=== PATIENT | male | born 1965 | race Hispanic/Latino ===

== ENCOUNTER 2017-01-17 11:38 | Emergency (ER) | payer SELFPAY ==
[~2017-01-17] VITALS: Ht 167.6 cm; Wt 61.4 kg
[~2017-01-17 11:38] MED LIST: DIABETA5 MG OR; LISINOPRIL10 MG PO; METFORMIN850 MG OR; PRAVASTATIN20 MG OR; PREVACID30 M2 OR
[2017-01-17 12:25] LABS: HEMATOCRIT 44.6 % (39.0-50.0); HEMOGLOBIN 15.7 g/dl (14.0-18.0); IMMATURE GRANULOCYTES 0.2 % (0.0-1.0); MEAN CELL VOLUME 93.9 fL CALC (80.0-100.0); MEAN CORPUSCULAR HGB 33.1 pG CALC (26.0-32.0); MEAN CORPUSCULAR HGB CONC 35.2 g/L CALC (32.0-36.0); NEUT# 3.08 thou/uL (1.82-7.42); RED BLOOD COUNT 4.75 mill/uL (4.70-6.10); RED CELL DISTRI WIDTH 11.7 % (11.5-15.5)
[2017-01-17 12:27] LABS: URINE CLARITY CLEAR; URINE COLOR YELLOW; URINE GLUCOSE - DIPSTICK >=1000 mg/dL (NEGATIVE); URINE KETONE TRACE mg/dL (NEGATIVE); URINE LEUK ESTERASE NEGATIVE (NEGATIVE); URINE NITRITE - DIPSTICK NEGATIVE (Negative); URINE PROTEIN - DIPSTICK 30 mg/dL (NEG-TRACE)
[2017-01-17 12:32] LABS: URINE BILIRUBIN - DIPSTICK NEGATIVE (NEGATIVE)
[2017-01-17] MEDS ORDERED: OMEPRAZOLE10 MG PO (12:32)
[2017-01-17] MEDS ORDERED: NOVOLIN N100 UNIT/1 SC (12:32)
[2017-01-17 12:37] LABS: URINE BACTERIA RARE hpf; URINE BLOOD DIPSTICK NEGATIVE (NEGATIVE); URINE EPITHELIAL CELLS RARE EPI/hpf (0-FEW); URINE RBC 0-2 RBC/hpf (0-5); URINE WBC 0-2 WBC/hpf (0-5)
[2017-01-17 12:56] LABS: ALBUMIN 4.8 g/dL (3.2-5.0); ALKALINE PHOSPHATASE 96 u/l (38-126); AMYLASE 36 u/l (30-110); ANION GAP 17 (6-22 (CALC)); BILIRUBIN, TOTAL 1.5 mg/dL (0.0-1.4); BUN 15 mg/dL (9-20); BUN/CREATININE RATIO 22 (12-20 (CALC)); CALCIUM 9.7 mg/dL (8.4-10.2); CARBON DIOXIDE 26 mmol/l (22-30); CHLORIDE 100 mmol/l (95-108); CREATININE 0.7 mg/dL (0.7-1.3); GFR > 60 ML/MIN (>=60 (CALC)); GFR FOR AFR.AMER. > 60 ML/MIN (>=60 (CALC)); GLUCOSE 214 mg/dL (75-110); LIPASE 71 u/l (23-300); POTASSIUM 4.5 mmol/l (3.5-5.1); SGOT/AST 25 u/l (17-59); SGPT/ALT 37 u/l (21-72); SODIUM 138 mmol/l (137-146); TOTAL PROTEIN 8.2 g/dL (6.3-8.2)
[2017-01-17] MEDS ORDERED: NEXIUM40 M1 PO (14:40)
[2017-01-17] MEDS ORDERED: ZOFRAN ODT4 MG PO (14:40)
[2017-01-17 14:56] VITALS: BP 162/87
== END 2017-01-17 15:16 | disposition home or self-care (01) | DRG 392 ==
LOC: ED 11:38
PROVIDERS: Emergency Medicine
DX: R11.10 Vomiting, unspecified (principal); R17 Unspecified jaundice; E11.9 Type 2 diabetes mellitus without complications

== ENCOUNTER 2017-02-19 15:52 | Emergency (ER) | payer SELFPAY ==
[~2017-02-19] VITALS: Ht 167.6 cm; Wt 65.8 kg
[~2017-02-19 15:52] MED LIST changes: +NEXIUM40 M1 PO; +NOVOLIN N100 UNIT/1 SC; +OMEPRAZOLE10 MG PO; +ZOFRAN ODT4 MG PO
[2017-02-19 17:56] LABS: HEMOGLOBIN 15.2 g/dl (14.0-18.0); IMMATURE GRANULOCYTES 0.4 % (0.0-1.0); MEAN CELL VOLUME 93.5 fL CALC (80.0-100.0); MEAN CORPUSCULAR HGB 33.9 pG CALC (26.0-32.0); MEAN CORPUSCULAR HGB CONC 36.2 g/L CALC (32.0-36.0); NEUT# 2.66 thou/uL (1.82-7.42); RED BLOOD COUNT 4.49 mill/uL (4.70-6.10); RED CELL DISTRI WIDTH 11.8 % (11.5-15.5)
[2017-02-19 18:08] LABS: ALBUMIN 4.2 g/dL (3.2-5.0); ALKALINE PHOSPHATASE 199 u/l (38-126); AMYLASE 54 u/l (30-110); ANION GAP 16 (6-22 (CALC)); BILIRUBIN, TOTAL 0.5 mg/dL (0.0-1.4); BUN 15 mg/dL (9-20); BUN/CREATININE RATIO 21 (12-20 (CALC)); CALCIUM 9.2 mg/dL (8.4-10.2); CARBON DIOXIDE 24 mmol/l (22-30); CHLORIDE 102 mmol/l (95-108); CREATININE 0.7 mg/dL (0.7-1.3); GFR > 60 ML/MIN (>=60 (CALC)); GFR FOR AFR.AMER. > 60 ML/MIN (>=60 (CALC)); GLUCOSE 292 mg/dL (75-110); LIPASE 181 u/l (23-300); POTASSIUM 3.5 mmol/l (3.5-5.1); SGOT/AST 21 u/l (17-59); SGPT/ALT 34 u/l (21-72); SODIUM 139 mmol/l (137-146); TOTAL PROTEIN 7.1 g/dL (6.3-8.2)
[2017-02-19 18:22] LABS: MYOGLOBIN 19 ng/mL (0 - 121)
[2017-02-19] MEDS ORDERED: NEXIUM40 M1 PO (18:22)
[2017-02-19 18:42] VITALS: BP 117/77
== END 2017-02-19 19:10 | disposition home or self-care (01) | DRG 392 ==
LOC: ED 15:52
PROVIDERS: Emergency Medicine
DX: R10.13 Epigastric pain (principal)

== ENCOUNTER 2020-05-20 12:20 | Emergency (ER) | payer SELFPAY ==
[~2020-05-20] VITALS: Ht 165.1 cm; Wt 56.8 kg
[2020-05-20 14:52] LABS: HEMATOCRIT 41.1 % (39.0-50.0); HEMOGLOBIN 13.8 g/dl (14.0-18.0); IMMATURE GRANULOCYTES 0.7 % (0.0-5.0); MEAN CELL VOLUME 97.9 fL CALC (80.0-100.0); MEAN CORPUSCULAR HGB 32.9 pG CALC (26.0-32.0); MEAN CORPUSCULAR HGB CONC 33.6 g/dL CAL (32.0-36.0); NEUT# 3.74 thou/uL (1.82-7.42); RED BLOOD COUNT 4.2 mill/uL (4.70-6.10); RED CELL DISTRI WIDTH 11.9 % (11.5-15.5)
[2020-05-20 15:07] LABS: ALBUMIN 4.4 g/dL (3.2-5.0); ALKALINE PHOSPHATASE 216 u/l (38-126); BUN 16 mg/dL (9-20); BUN/CREATININE RATIO 25 (12-20 (CALC)); CARBON DIOXIDE 21 mmol/l (22-30); CHLORIDE 95 mmol/l (95-108); CREATININE 0.6 mg/dL (0.7-1.3); GFR > 60 ML/MIN (>=60 (CALC)); GFR FOR AFR.AMER. > 60 ML/MIN (>=60 (CALC)); SODIUM 133 mmol/l (137-146); TOTAL PROTEIN 7.4 g/dL (6.3-8.2)
[2020-05-20 15:11] LABS: ANION GAP 21 (6-22 (CALC)); BILIRUBIN, TOTAL 0.8 mg/dL (0.0-1.4); POTASSIUM 4.3 mmol/l (3.5-5.1); SGOT/AST 41 u/l (17-59)
[2020-05-20] MEDS ORDERED: AMOXICILLIN500 MG PO (16:39)
[2020-05-20] MEDS ORDERED: ULTRAM50 M1 PO (16:39)
[2020-05-20 16:54] VITALS: BP 102/73
== END 2020-05-20 16:55 | disposition home or self-care (01) | DRG 563 ==
LOC: ED 12:20
PROVIDERS: Emergency Medicine
PROC: 0HQGXZZ Repair Left Hand Skin, External Approach (ICD-10-PCS; principal; 2020-05-20)
DX: S62.617A Displaced fracture of proximal phalanx of left little finger, initial encounter for closed fracture (principal); S61.217A Laceration without foreign body of left little finger without damage to nail, initial encounter; S61.214A Laceration without foreign body of right ring finger without damage to nail, initial encounter; M54.2 Cervicalgia; E11.9 Type 2 diabetes mellitus without complications; V13.4XXA Pedal cycle driver injured in collision with car, pick-up truck or van in traffic accident, initial encounter; Y93.55 Activity, bike riding; Y92.410 Unspecified street and highway as the place of occurrence of the external cause; Z79.4 Long term (current) use of insulin
CPT/HCPCS: Q9967

== ENCOUNTER 2021-03-17 09:54 | Emergency (ER) | payer SELFPAY ==
[~2021-03-17 09:54] MED LIST changes: +AMOXICILLIN500 MG PO; +ULTRAM50 M1 PO
[2021-03-17] MEDS ORDERED: TORADOL PO (12:18)
[2021-03-17] MEDS ORDERED: OMEPRAZOLE DR20 MG PO (12:20)
[2021-03-17] MEDS ORDERED: LANTUS SOL100 UNIT/M SC (12:20)
== END 2021-03-17 10:01 | disposition left against medical advice (07) | DRG 951 ==
LOC: ED 09:54 → LWOBS 10:01 → ED 10:01
DX: Z91.19 Patient's noncompliance with other medical treatment and regimen (principal)

== ENCOUNTER 2021-03-17 10:11 | Emergency (ER) | payer OTHER ==
[~2021-03-17] VITALS: Ht 165.1 cm; Wt 70.0 kg
[2021-03-17] MEDS ORDERED: TORADOL PO (12:18)
[2021-03-17] MEDS ORDERED: LANTUS SOL100 UNIT/M SC (12:20)
[2021-03-17] MEDS ORDERED: OMEPRAZOLE DR20 MG PO (12:20)
[2021-03-17 12:30] VITALS: BP 120/65
== END 2021-03-17 12:30 | disposition home or self-care (01) | DRG 605 ==
LOC: ED 10:11
DX: S80.01XA Contusion of right knee, initial encounter (principal); S90.01XA Contusion of right ankle, initial encounter; E11.9 Type 2 diabetes mellitus without complications; V09.1XXA Pedestrian injured in unspecified nontraffic accident, initial encounter; Y93.89 Activity, other specified; Y92.89 Other specified places as the place of occurrence of the external cause; Y99.0 Civilian activity done for income or pay; Z79.84 Long term (current) use of oral hypoglycemic drugs

== ENCOUNTER 2021-10-05 08:02 | Day surgery (SDC) | payer SELFPAY ==
[~2021-10-05] VITALS: Ht 154.9 cm; Wt 63.5 kg
[~2021-10-05 08:02] MED LIST changes: +AMOXICILLIN500 M2; +CYCLOBENZAPRINE10 MG PO; +DICLOFENAC75 MG PO; +GABAPENTIN300 M2; +LANTUS SOL100 UNIT/M SC; +OMEPRAZOLE DR20 MG PO; +TORADOL PO
[2021-10-05 11:45] VITALS: BP 116/83
== END 2021-10-05 11:24 | disposition home or self-care (01) | DRG 392 ==
LOC: ENDO 08:02 → ORM 10:00 → ENDO 11:24
PROVIDERS: ATTEND Surgery
PROC: 0DJD8ZZ Inspection of Lower Intestinal Tract, Via Natural or Artificial Opening Endoscopic (ICD-10-PCS; principal; 2021-10-05)
DX: R10.32 Left lower quadrant pain (principal); R19.4 Change in bowel habit; E11.40 Type 2 diabetes mellitus with diabetic neuropathy, unspecified; K21.9 Gastro-esophageal reflux disease without esophagitis; Z79.4 Long term (current) use of insulin

== ENCOUNTER 2021-10-06 06:53 | Day surgery (SDC) | payer SELFPAY ==
[~2021-10-06] VITALS: Ht 154.9 cm; Wt 63.5 kg
[2021-10-06 10:08] VITALS: BP 96/68
== END 2021-10-06 11:24 | disposition home or self-care (01) | DRG 392 ==
LOC: ORM 06:53
PROVIDERS: ATTEND Surgery
PROC: 0DJD8ZZ Inspection of Lower Intestinal Tract, Via Natural or Artificial Opening Endoscopic (ICD-10-PCS; principal; 2021-10-06)
DX: R10.32 Left lower quadrant pain (principal); R19.4 Change in bowel habit; K64.8 Other hemorrhoids; E11.40 Type 2 diabetes mellitus with diabetic neuropathy, unspecified; K21.9 Gastro-esophageal reflux disease without esophagitis; Z79.4 Long term (current) use of insulin

== ENCOUNTER 2024-07-03 11:31 | Inpatient (IN) | payer SELFPAY ==
[~2024-07-03] VITALS: Ht 154.9 cm; Wt 61.0 kg
--- NOTE | 2024-07-03 12:15 | NUR ---
PT TO ER TRIAGE ROOM VIA WHEELCHAIR. PT PLACED BACK INTO ER LOBBY
[2024-07-03 13:30] LABS: BASO% 0.3 % (0-3); EOS% 0.3 % (0-8); IMMATURE GRANULOCYTES 0.3 % (0.0-5.0); LYMPH% 15.2 % (15-41); MEAN CORPUSCULAR HGB 33.3 pG CALC (26.0-32.0); MEAN CORPUSCULAR HGB CONC 33.3 g/dL CAL (32.0-36.0); MONO% 11.4 % (2-13); NEUT# 9.31 thou/uL (1.82-7.42); NEUT% 72.5 % (42-76); RED BLOOD COUNT 3.9 mill/uL (4.70-6.10); RED CELL DISTRI WIDTH 11.8 % (11.5-15.5)
[2024-07-03] MEDS ORDERED: CEFEPIME HYDROCHLORIDE 1 GM in SODIUM CHLORIDE 0.9% 50 ML IV ONE (13:40)
[2024-07-03] MEDS ORDERED: SODIUM CHLORIDE 0.9% 1,000 ML IV ONE (13:40)
[2024-07-03] MEDS ORDERED: VANCOMYCIN HCL 1 GM in SODIUM CHLORIDE 0.9% 500 ML IV ONE (13:40)
[2024-07-03 13:49] LABS: ALBUMIN 3.2 g/dL (3.2-5.0); CREATININE 0.6 mg/dL (0.7-1.3); POTASSIUM 4.5 mmol/l (3.5-5.1); TOTAL PROTEIN 6.3 g/dL (6.3-8.2)
--- NOTE | 2024-07-03 14:39 | NUR ---
PT RESTING COMFORTABLY IN BED
--- NOTE | 2024-07-03 15:24 | NUR ---
PT RESTING, NO NEEDS AT THIS TIME.
--- NOTE | 2024-07-03 16:00 | NUR ---
PT TRANSPORTED VIA WC TO ROOM 264.
[2024-07-03] MEDS ORDERED: MAGNESIUM HYDROXIDE 30 ML UDC PO PRN (16:40)
[2024-07-03] MEDS ORDERED: SODIUM CHLORIDE 0.9% 1,000 ML IV PRN (16:40)
[2024-07-03] MEDS ORDERED: ACETAMINOPHEN 325 MG/TAB PO PRN (16:40)
[2024-07-03] MEDS ORDERED: INSULIN LISPRO 100 UNITS/ML ML SC SCH (17:00)
--- NOTE | 2024-07-03 17:17 | NUR ---
S: HOLLIS WHITEHEAD is a 59 M who presents with CELLULITIS OF RIGHT FOOT. All medications in patient's chart were reviewed. O: VS: BP 104/50, P 92 ,T 98.2 W 60kg, HT 61 in, Scr= 0.6,CrCl= 107ml/min A: Blood culture is pending P: Patient is on CEFEPIME 2GM IV Q12H AND RECEIVED VANCOMYCIN 1GM IV IN THE ED ON 07/03/24 @1400 Vancomycin ordered for pharmacy to dose. Start Vancomycin 1GM IV Q12H. Vancomycin trough is drawn before the 4th dose on 07/05/24 @0130. Vancomycin goal trough is between 10-15 mcg/ml. Pharmacy will follow and or advise on antibiotics use as needed.
[2024-07-03 19:27] VITALS: BP 114/66
--- NOTE | 2024-07-03 19:48 | NUR ---
PATIENT SITTING UP IN BED. FAMILY MEMBERS AT BEDSIDE. ASSESSMENT COMPLETED. PATIENT ALERT AND ORIENTED X 4. DENIES PAIN AT THIS TIME. BREATHING EVEN AND UNLABORED ON ROOM AIR. PATIENT EDUCATED ON NURSING PLAN OF CARE WITH FAMILY MEMBER AT BEDSIDE TO TRANSLATE, VERBALIZED UNDERSTANDING. R FOOT DRESSING CLEAN, DRY AND INTACT. SAFETY MEASURES IN PLACE INCLUDING BED LOCKED AND IN LOW POSITION. CALL LIGHT RESTING NEXT TO R HAND. NO APPARENT DISTRESS NOTED. WILL CONTINUE WITH PLAN OF CARE.
[2024-07-03] MEDS ORDERED: CEFEPIME HYDROCHLORIDE 2 GM in SODIUM CHLORIDE 0.9% 100 ML IV SCH (20:00)
[2024-07-03] MEDS ORDERED: Zaleplon 5 MG/CAP PO PRN (21:00)
[2024-07-04] VITALS (7 sets, daily range): BP systolic 100–139; BP diastolic 56–83
--- NOTE | 2024-07-04 | NUR ---
PATIENT APPEARS TO BE RESTING WITH EYES CLOSED. RISE AND FALL OF CHEST NOTED. NO APPARENT DISTRESS NOTED. WILL CONTINUE WITH PLAN OF CARE.
[2024-07-04] MEDS ORDERED: VANCOMYCIN HCL 1 GM in SODIUM CHLORIDE 0.9% 250 ML IV SCH (02:00)
--- NOTE | 2024-07-04 04:00 | NUR ---
PATIENT APPEARS TO BE RESTING WITH EYES CLOSED. RISE AND FALL OF CHEST NOTED. NO APPARENT DISTRESS. WILL CONTINUE WITH PLAN OF CARE.
[2024-07-04 04:51] LABS: HEMATOCRIT 34.3 % (39.0-50.0); HEMOGLOBIN 11.4 g/dl (14.0-18.0); MEAN CELL VOLUME 102.7 fL CALC (80.0-100.0); MEAN CORPUSCULAR HGB 34.1 pG CALC (26.0-32.0); MEAN CORPUSCULAR HGB CONC 33.2 g/dL CAL (32.0-36.0); RED BLOOD COUNT 3.34 mill/uL (4.70-6.10); RED CELL DISTRI WIDTH 11.9 % (11.5-15.5)
[2024-07-04 05:02] LABS: ALBUMIN 2.6 g/dL (3.2-5.0); BILIRUBIN, TOTAL 0.8 mg/dL (0.2-1.3); CHOLESTEROL HDL RATIO 3.2 (<4.4 (CALC)); CREATININE 0.6 mg/dL (0.7-1.3); MAGNESIUM 1.8 mg/dL (1.6-2.3); TOTAL PROTEIN 5.6 g/dL (6.3-8.2)
--- NOTE | 2024-07-04 08:15 | NUR ---
PT IS FOUND TO BE RESTING COMFORTABLY IN BED. NO ACUTE EVENTS OVER NIGHT. PT IS A&O X4; STABLE. PT IS INDEPENDANT IN THE ROOM. PLAN OF CARE WAS REVIEWED; NO FURTHER QUESTIONS AT THIS TIME. CALL LIGHT IS WITHIN REACH.
[2024-07-04] MEDS ORDERED: INSULIN GLARGINE 100 UNITS/ML SC SCH (09:00)
--- NOTE | 2024-07-04 12:30 | NUR ---
PT'S CONDITION HAS REMAINED THE SAME. CALL LIGHT IS WITHIN REACH.
--- NOTE | 2024-07-04 16:30 | NUR ---
PLAN OF CARE WAS REVIEWED WITH THE SON; MARTHA. PT'S CONDITION REMIANS THE SAME. THIS RN DID WOUND CARE; CLEAN WITH BETADINE, NON ADHERANT, KERLEX, AND SIRI WRAP. NO FURTHER QUESTIONS AT THIS TIME. CALL LIGHT IS WITHIN REACH.
[2024-07-05] VITALS: BP 110/50; BP 123/73
[2024-07-05 04:00] VITALS: BP 110/50
[2024-07-05 04:38] VITALS: BP 110/50
[2024-07-05 05:34] LABS: HEMATOCRIT 35.6 % (39.0-50.0); HEMOGLOBIN 11.7 g/dl (14.0-18.0); MEAN CELL VOLUME 102.9 fL CALC (80.0-100.0); MEAN CORPUSCULAR HGB 33.8 pG CALC (26.0-32.0); MEAN CORPUSCULAR HGB CONC 32.9 g/dL CAL (32.0-36.0); RED BLOOD COUNT 3.46 mill/uL (4.70-6.10)
[2024-07-05 05:59] LABS: ALBUMIN 2.6 g/dL (3.2-5.0); BILIRUBIN, TOTAL 0.8 mg/dL (0.2-1.3); CREATININE 0.6 mg/dL (0.7-1.3); POTASSIUM 4.3 mmol/l (3.5-5.1); TOTAL PROTEIN 5.6 g/dL (6.3-8.2)
[2024-07-05 07:03] VITALS: BP 113/70
--- NOTE | 2024-07-05 07:15 | NUR ---
BEDSIDE SHIFT REPORT RECEIVED FROM [facility]. PT RESTING IN BED WITHOUT COMPLAINTS. PT SPEAKS MAINLY VIET[place]ESE AND UNDERSTANDS SOME THAI. DENIES PAIN. WILL MONITOR.
[2024-07-05] MEDS ORDERED: HYDROcodone 5 MG/Acetaminophen 325 MG/COMBO PO PRN (08:15)
[2024-07-05] MEDS ORDERED: VANCOMYCIN HCL 1,250 MG in SODIUM CHLORIDE 0.9% 225 ML IV SCH (14:00)
--- NOTE | 2024-07-05 14:41 | NUR ---
S: HOLLIS WHITEHEAD is a 59 M who presents with cellulitis. O: VS: BP 113/70, P 84, RR 20,T 97.6 W 61 kg, HT 61 in, Scr= 0.6,CrCl= 107 l/min A: Wound culture is pending. P: Patient is on Cefepime 2gm IV q12h. Vancomycin ordered for pharmacy to dose. Vancomycin trough on 07/05/24 0150 resulted at 7 mcg/ml. Increase Vancomycin to 1250 mg IV q12h. Vancomycin trough is drawn before the 4th dose on 07/07/24 0130. Vancomycin goal trough is between <10-15 mcg/ml>. Pharmacy will follow and or advise on antibiotics use as needed.
[2024-07-05 15:35] VITALS: BP 103/65
--- NOTE | 2024-07-05 18:42 | NUR ---
PT RESTED IN BED MOST OF SHIFT WITH MINIMAL ASSIST TO BR TO SHOWER WITH HIS SON HELPING HIM. RIGHT FOOT DRESSING CHANGED AND PT DELON WELL. BLACK ESCHAR TO TOP OF FOOT NEAR TOES TO 3RD TARSAL WELL. PAIN MANAGED WITH ORDERED LORTAB. NO CHANGES TO REPORT.
--- NOTE | 2024-07-05 19:44 | NUR ---
PATIENT SITTING UP IN BED WATCHING TV. PATIENT ALERT AND ORIENTED X 4. STATES HE HAS PAIN OF A 2 AT THIS TIME AND IS MANAGEABLE. LUNGS CLEAR TO ASCULTATION. BREATHING EVEN AND UNLABORED ON ROOM AIR. STRONG PULSES. SAFETY MEASURES IN PLACE INCLUDING BED LOCKED AND IN LOW POSITION WITH CALL LIGHT RESTING NEXT TO R HAND. NO APPARENT DISTRESS. WILL CONTINUE WITH PLAN OF CARE.
[2024-07-05 19:48] VITALS: BP 91/52
[2024-07-05] MEDS ORDERED: DiphenhydrAMINE HCL 25 MG CPLT PO SCH (21:15)
--- NOTE | 2024-07-05 21:29 | NUR ---
WOUND CX OBTAINED. R FOOT REWRAPPED WITH NONADHERENT DRSG, KERLIX AND 1 SIRI BANDAGE
[2024-07-06] VITALS (9 sets, daily range): BP systolic 74–117; BP diastolic 42–73
--- NOTE | 2024-07-06 | NUR ---
PATIENT LYING IN BED WATCHING TV. PATIENT STATES THAT HE HAS BEEN UNABLE TO SLEEP. WILL MEDICATE ACCORDING TO EMAR. DENIES ADDITIONAL CONCERNS AT THIS TIME. NO APPARENT DISTRESS. WILL CONTINUE WITH PLAN OF CARE.
--- NOTE | 2024-07-06 03:51 | NUR ---
PATIENT LYING IN BED WATCHING TV. ASSESSMENT UNCHANGED. PATIENT HAS NOT SLEPT AND IS CONCERNED ABOUT HIS FOOT BEING AMPUTATED. DISCUSSED, AT LENGTH, THAT THE DOCTOR WILL DISCUSS NEXT STEPS WITH THE PATIENT POST-MRI. THE PATIENT VERBALIZED UNDERSTANDING AND DENIES ADDITIONAL CONCERNS AT THIS TIME. RYAN BATRES, AT BEDSIDE TO FACILITATE EFFECTIVE COMMUNICATION AND UNDERSTANDING.
--- NOTE | 2024-07-06 07:10 | NUR ---
pt's bp low 80's over 40's on right upper arm was taken 3 times after removing and moving cuff. nurse notified. also taken on left side it was 70's over 40's and nurse was notified about that reading as well. pt was interactive with staff appropriately. pt denied pain to nurse. sugar was 143.
[2024-07-06] MEDS ORDERED: SODIUM CHLORIDE 0.9% 1,000 ML IV PRN (07:25)
--- NOTE | 2024-07-06 07:26 | NUR ---
BEDSIDE SHIFT REPORT RECEIVED FROM [place]. PT RESTING IN BED WITHOUT COMP[LAINTS. BP LOW 79/41 AND KARLEE PA ON UNIT AND INFORMED. PT ASYMPTOMATIC. WILL MONITOR. BS 143 WITH NO COVERAGE.
[2024-07-06 08:05] LABS: BASO% 0.4 % (0-3); EOS% 1.7 % (0-8); HEMATOCRIT 39.5 % (39.0-50.0); HEMOGLOBIN 12.9 g/dl (14.0-18.0); IMMATURE GRANULOCYTES 0.4 % (0.0-5.0); LYMPH% 13.7 % (15-41); MEAN CELL VOLUME 103.1 fL CALC (80.0-100.0); MEAN CORPUSCULAR HGB 33.7 pG CALC (26.0-32.0); MEAN CORPUSCULAR HGB CONC 32.7 g/dL CAL (32.0-36.0); MONO% 7.9 % (2-13); NEUT# 8.07 thou/uL (1.82-7.42); NEUT% 75.9 % (42-76); RED BLOOD COUNT 3.83 mill/uL (4.70-6.10)
[2024-07-06 08:29] LABS: ALBUMIN 2.8 g/dL (3.2-5.0); BILIRUBIN, TOTAL 0.6 mg/dL (0.2-1.3); CREATININE 0.6 mg/dL (0.7-1.3); POTASSIUM 4.2 mmol/l (3.5-5.1); TOTAL PROTEIN 5.9 g/dL (6.3-8.2)
--- NOTE | 2024-07-06 08:38 | NUR ---
DR SHEEHAN WAS CONTACTED BY HELDER RENEE IN REFERENCE TO A SURGICAL CONSULT AT 0838 HRS.
--- NOTE | 2024-07-06 08:38 | NUR ---
DR SHEEHAN WAS CONTACTED BY HELDER RENEE IN REFERENCE TO A SURGICAL CONSULT AT APPX 0838 HRS.
--- NOTE | 2024-07-06 08:55 | NUR ---
recheck bp 96/58. nurse notified of results.
[2024-07-06] MEDS ORDERED: GADOPICLENOL (VUEWAY) 0.5 MM/ML 3.75MM/7.5ML VIAL IV ONE (10:55)
--- NOTE | 2024-07-06 11:45 | NUR ---
PT TO US/MRI VIA W/C. NO CHANGES TO REPORT.
[2024-07-07 04:54] VITALS: BP 101/56
[2024-07-07 05:57] LABS: BASO% 0.2 % (0-3); HEMOGLOBIN 11.2 g/dl (14.0-18.0); IMMATURE GRANULOCYTES 0.4 % (0.0-5.0); LYMPH% 13.1 % (15-41); MEAN CELL VOLUME 103.3 fL CALC (80.0-100.0); MEAN CORPUSCULAR HGB CONC 32.9 g/dL CAL (32.0-36.0); MONO% 10.6 % (2-13); NEUT# 6.67 thou/uL (1.82-7.42); NEUT% 73.7 % (42-76); RED BLOOD COUNT 3.29 mill/uL (4.70-6.10)
[2024-07-07 06:00] LABS: ALBUMIN 2.4 g/dL (3.2-5.0); BILIRUBIN, TOTAL 0.4 mg/dL (0.2-1.3); CREATININE 0.6 mg/dL (0.7-1.3); MAGNESIUM 1.7 mg/dL (1.6-2.3); POTASSIUM 3.8 mmol/l (3.5-5.1); TOTAL PROTEIN 5.2 g/dL (6.3-8.2)
--- NOTE | 2024-07-07 06:20 | NUR ---
CRITICAL LAB, GLUCOSE 56. PATIENT AWAKE AND ALERT. GIVEN TURKEY WRAP AND ORANGE JUICE.
--- NOTE | 2024-07-07 06:30 | NUR ---
nurse took patient glucose level which is 55.
--- NOTE | 2024-07-07 06:45 | NUR ---
GLUCOSE RECHECK 104. PROVIDER RAMSEY PENDLETON, NOTIFIED.
[2024-07-07 06:53] VITALS: BP 96/59
--- NOTE | 2024-07-07 10:23 | NUR ---
consent obtained using skinning machine [employer] CNA; informed pt to refrain from all food/water/oral intake after MN; visitor present and states pt does NOT know how to write full name; pt able to initial consent;
--- NOTE | 2024-07-07 10:29 | NUR ---
S: HOLLIS WHITEHEAD is a 59 M who presents with cellulitis. He has a history of diabetes. All medications in patient's chart were reviewed. O: VS: BP 96/59 mmHg, P 76 bpm, RR 20 bpm ,T 97.6 W 61 kg, HT 61 inches, Scr= 0.6 mg/dL ,CrCl= 107 ml/min Pt trough level is 9 mcg/mL on 07/07/2024 A: Wound culture shows normal skin cristal. Vancomycin trough level is below the goal which is 10-15 mcg/mL increase dose of Vancomycin. P: Patient is on Vancomycin 1250 mg IV Q12hr and Cefepime 2 g IV Q12hr. Vancomycin ordered for pharmacy to dose. Start Vancomycin 1500 mg IV Q12H. Vancomycin trough is drawn before the 4th dose on 07/09/2024 at 0130. Vancomycin goal trough is between 10-15 mcg/ml. Pharmacy will follow and or advise on antibiotics use as needed.
[2024-07-07] MEDS ORDERED: DEXTROSE 10% 500 ML BAG IV PRN (10:40)
[2024-07-07] MEDS ORDERED: DEXTROSE 250 ML IV PRN (10:50)
[2024-07-07] MEDS ORDERED: DEXTROSE 50% 50 ML/SYR IV PRN (10:50)
--- NOTE | 2024-07-07 12:26 | NUR ---
patient sitting up in recliner with staff assistance.
[2024-07-07] MEDS ORDERED: VANCOMYCIN HCL 1,500 MG in SODIUM CHLORIDE 0.9% 470 ML IV SCH (14:00)
[2024-07-07] MEDS ORDERED: SODIUM CHLORIDE 0.9% 0 ML IV ONE (14:03)
[2024-07-07 14:20] VITALS: BP 123/72
[2024-07-07 18:55] VITALS: BP 101/50
--- NOTE | 2024-07-07 19:00 | NUR ---
SHIFT REPORT RECEIVED. PATIENT AWAKE IN BED WATCHING TV. NO C/O PAIN AT THIS TIME. EDUCATED PATIENT ON NPO STATUS AT MIDNIGHT FOR SURGERY IN A.M; VERBALIZES UNDERSTANDING.
[2024-07-08] MEDS ORDERED: DEXTROSE W/ SODIUM CHLORIDE 1,000 ML IV PRN
--- NOTE | 2024-07-08 00:13 | NUR ---
PATIENT NPO, WATER PITCHER EMPTIED AND REMOVED FROM BEDSIDE TABLE. INFUSION OF D5%1/4NS @ 100ML/HR BEGAN AT LEFT FOREARM SITE. PATIENT DENIES PAIN AT THIS TIME, NO DISTRESS NOTED. CALL LIGHT WITHIN REACH.
[2024-07-08 04:20] VITALS: BP 107/65
--- NOTE | 2024-07-08 05:34 | NUR ---
VANCOMYCIN INFUSION COMPLETE. RIGHT LOWER EXTREMITY WRAPPED WITH PLASTIC BAG. PATIENT ASSISTED INTO SHOWER, SELF BATHED. LINEN CHANGE COMPLETED AT THIS TIME. PATIENT TOLERATED WELL.
[2024-07-08 06:05] LABS: BASO% 0.4 % (0-3); HEMATOCRIT 33.9 % (39.0-50.0); IMMATURE GRANULOCYTES 0.2 % (0.0-5.0); LYMPH% 16.4 % (15-41); MEAN CORPUSCULAR HGB 33.4 pG CALC (26.0-32.0); MEAN CORPUSCULAR HGB CONC 32.4 g/dL CAL (32.0-36.0); MONO% 11.4 % (2-13); NEUT# 5.73 thou/uL (1.82-7.42); NEUT% 68.6 % (42-76); RED BLOOD COUNT 3.29 mill/uL (4.70-6.10); RED CELL DISTRI WIDTH 11.9 % (11.5-15.5)
[2024-07-08 06:11] LABS: ALBUMIN 2.3 g/dL (3.2-5.0); BILIRUBIN, TOTAL 0.3 mg/dL (0.2-1.3); CREATININE 0.5 mg/dL (0.7-1.3); MAGNESIUM 1.8 mg/dL (1.6-2.3); POTASSIUM 4.4 mmol/l (3.5-5.1); TOTAL PROTEIN 5.2 g/dL (6.3-8.2)
[2024-07-08 06:22] VITALS: BP 127/73
--- NOTE | 2024-07-08 07:20 | NUR ---
PT LAYING IN BED RESTING WITH EYES CLOSED, AROUSES EASILY TO VERBAL STIMULI, PT IS A&O X3, PUPILS PERRL,NORMAL S1 S2 HEART SOUNDS, RESP. EVEN AND UNLABORED, LUNG SOUNDS ARE CLEAR, ABD DISTENDED AND SOFT WITH ACTIVE BOWEL SOUNDS, STRONG RADIAL AND PEDAL PULSES, DRESSING ON R FOOT CD&I, TOES ARE WARM WITH GOOD CAP REFILL, 20G LA IV WITH FLUIDS INFUSING AT PRESCRIBED RATE, SHILA PICC SL, SAFETY MEASURES REINFORCED, CALL PERDOMO WITHIN REACH
--- NOTE | 2024-07-08 07:35 | NUR ---
PT TAKEN TO OR VIA STRETCHER, PT AMBULATED TO STRETCHER WITH A SLOW STEADY GAIT, PT TOLERATED WELL
[2024-07-08] MEDS ORDERED: SODIUM CHLORIDE 0.9% 1,000 ML IV ONE (07:37)
[2024-07-08] MEDS ORDERED: FAMOTIDINE 10MG/ML 2ML SDV IV ONE (07:37)
[2024-07-08] MEDS ORDERED: LIDOCAINE HCL 1% (10MG/ML) 100 MG/10 ML MDV ONE ×2 (07:39→07:40)
[2024-07-08] MEDS ORDERED: ACETAMINOPHEN 100 ML IV ONE (08:48)
[2024-07-08] MEDS ORDERED: HYDROmorphone HCL 2 MG/AMP IV PRN (08:55)
--- NOTE | 2024-07-08 09:10 | NUR ---
PT ARRIVED TO THE UNIT FROM THE OR VIA STRETCHER, PT ASSISTED WITH TRANSFERING TO THE BED FROM THE STRETCHER, BEDSIDE REPORT GIVE BY [facility], FAMILY AT BEDSIDE, SAFETY MEASURES REINFORCED, PT REMINDED TO CALL FOR ASSISTANCE, PT VERBALIZED UNDERSTANDING, CALL PERDOMO WITHIN REACH
[2024-07-08] MEDS ORDERED: STERILE WATER FOR IRRIGATION 500 ML BTL IR ONE (09:46)
[2024-07-08] MEDS ORDERED: SODIUM CHLORIDE 1,000 ML BTL IR ONE (09:46)
--- NOTE | 2024-07-08 12:00 | NUR ---
PT SITTING UP IN BED WATCHING TV, PT ASSISTED WITH REPOSITIONING FOR COMFORT, NO S/S OF DISTRESS, DRESSING REMAINS IN PLACE AND IS CD&I, PT DENIES ANY OTHER NEEDS AT THIS TIME, CALL PERDOMO WITHIN REACH
[2024-07-08 12:33] VITALS: BP 111/53
--- NOTE | 2024-07-08 15:49 | NUR ---
Pt is AOX4, respirations are even and unlabored on room air. pt right foot dressing is C,D,I, pt reports a throbbing pain at a 7-8 on a 0-10 pain scale. Will bring pt the ordered prn pain medication. Also, assisted pt in elevatting right foot up on 2 pillows.
[2024-07-08] MEDS ORDERED: ePHEDrine SULFATE 50 MG/ML AMP IV ONE (16:09)
[2024-07-08] MEDS ORDERED: LIDOCAINE HCL 2% 2ML SDV IV ONE (16:09)
[2024-07-08] MEDS ORDERED: PROPOFOL 200 MG/20 ML VIAL IV ONE (16:09)
[2024-07-08 19:30] VITALS: BP 110/64
--- NOTE | 2024-07-09 00:16 | NUR ---
PATIENT AWAKE IN ROOM, RESTING IN BED. RIGHT FOOT ELEVATED, DENIES PAIN AT THIS TIME. CALL LIGHT WITHIN REACH.
[2024-07-09 04:00] VITALS: BP 101/61
[2024-07-09 05:51] LABS: BASO% 0.5 % (0-3); EOS% 3.2 % (0-8); HEMATOCRIT 32.2 % (39.0-50.0); HEMOGLOBIN 10.5 g/dl (14.0-18.0); IMMATURE GRANULOCYTES 0.1 % (0.0-5.0); MEAN CELL VOLUME 103.2 fL CALC (80.0-100.0); MEAN CORPUSCULAR HGB 33.7 pG CALC (26.0-32.0); MEAN CORPUSCULAR HGB CONC 32.6 g/dL CAL (32.0-36.0); NEUT# 4.96 thou/uL (1.82-7.42); NEUT% 66.2 % (42-76); RED BLOOD COUNT 3.12 mill/uL (4.70-6.10); RED CELL DISTRI WIDTH 12.1 % (11.5-15.5)
[2024-07-09 06:09] LABS: ALBUMIN 2.3 g/dL (3.2-5.0); BILIRUBIN, TOTAL 0.3 mg/dL (0.2-1.3); CREATININE 0.5 mg/dL (0.7-1.3); MAGNESIUM 1.8 mg/dL (1.6-2.3); TOTAL PROTEIN 5.1 g/dL (6.3-8.2)
[2024-07-09 06:30] VITALS: BP 105/59
--- NOTE | 2024-07-09 06:30 | NUR ---
patient glucose level was 63. nurse notified , given orange juice.
--- NOTE | 2024-07-09 07:25 | NUR ---
PT LAYING IN BED WATCHING TV, PT IS A&O X3, PUPILS PERRL, RESP. EVEN AND UNLABORED, LUNG SOUNDS ARE CLEAR, ABD DISTENDED AND SOFT WITH ACTIVE BOWEL SOUNDS, STRONG RADIAL AND PEDAL PULSES, R FOOT DRESSING IN PLACE AND CD&I, FOOT IS WARM WITH GOOD CAP. REFILL, PT VERBALIZED HE IS HAVING PAIN OF A 5 ON THE PAIN SCALE OF 1 TO 10, PT REFUSED ANY PAIN MEDICATION AT THIS TIME, 20G LA IV WITH FLUIDS INFUSING AT PRESCRIBED RATE, SHILA PICC LINE IN PLACE SL, PT REEDUCATED ABOUT NOT WALKING ON HIS FOOT, PT VERBALIZED UNDERSTANDING, SAFETY MEASURES REINFORCED, CALL PERDOMO WITHIN REACH
[2024-07-09] MEDS ORDERED: VANCOMYCIN HCL 1 GM in SODIUM CHLORIDE 0.9% 250 ML IV SCH (10:00)
--- NOTE | 2024-07-09 12:00 | NUR ---
PT SITTING UP IN THE RECLINER WATCHING TV AND EATING LUNCH, PT REFUSED PAIN MEDICATION AT THIS TIME, CALL PERDOMO WITHIN REACH
--- NOTE | 2024-07-09 13:05 | NUR ---
S: HOLLIS WHITEHEAD is a 59 M who presents with osteomyelitis. O: VS: BP 105/59, P78, RR18,T 97.6 W 61 kg, HT 61 in, Scr= 0.5,CrCl= > 100 ml/min A: Wound culture is pending, preliminary results show gram positive cocci. P: Patient is on Cefepime 2gm IV q12h. Vancomycin ordered for pharmacy to dose. Start Vancomycin 1gm IV q8H. Vancomycin trough is drawn before the 4th dose on 07/10/24 0930. Vancomycin goal trough is between <15-20 mcg/ml>. Pharmacy will follow and or advise on antibiotics use as needed.
--- NOTE | 2024-07-09 14:30 | NUR ---
DRESSING CHANGED PER MD ORDER, PT TOLERATED WELL
[2024-07-09 14:56] VITALS: BP 126/73
--- NOTE | 2024-07-09 16:00 | NUR ---
PT ASSISTED BACK TO BED WITH MINIMAL ASSISTANCE, PT IS NONE WEIGHT BEARING ON R FOOT, PT TOLERATED WELL, SAFETY MEASURES REINFORCED, CALL PERDOMO WITHIN REACH
[2024-07-09 18:30] VITALS: BP 128/71
[2024-07-09 18:38] VITALS: BP 128/71
--- NOTE | 2024-07-09 20:00 | NUR ---
PATIENT SITTING UP IN BED WATCHING TV. ASSESSMENT COMPELTED. PATIENT ALERT AND ORIENTED X 4. C/O FOOT PAIN OF A 2, DECLINES PAIN RELIEF MEASURES AT THIS TIME. BREATHING EVEN AND UNLABORED ON ROOM AIR. LUNGS CLEAR TO ASCULTATION. DRESSING TO R FOOT CLEAN, DRY AND INTACT. SAFETY MEASURES IN PLACE INCLUDING BED LOCKED AND IN LOW POSITION WITH CALL LIGHT RESTING IN R HAND. NO APPARENT DISTRESS. WILL CONTINUE WITH PLAN OF CARE.
--- NOTE | 2024-07-09 22:00 | NUR ---
DRESSING CHANGE COMPLETE. 1 SIRI BANDAGE, 1 ROLL OF KERLIX, AND 5-4X4 GAUZE REMOVED. 1 ROLL OF FLUFF GAUZE SATURATED WITH NS, 1 NONADHERENT DRESSING, 1 ROLL OF KERLIX AND 1 SIRI BANDAGE APPPLIED. NEXT DRESSING CHANGE 07/10/24 AT 0600.
--- NOTE | 2024-07-10 | NUR ---
PATIENT LYING IN BED RESTING. DENIES CONCERNS AT THIS TIME. NO APPARENT DISTRESS. WILL CONTINUE WITH PLAN OF CARE.
--- NOTE | 2024-07-10 04:00 | NUR ---
PATIENT WATCHING TV. ALL NEEDS MET. WILL CONTINUE WITH PLAN OF CARE.
[2024-07-10 04:48] VITALS: BP 95/58
[2024-07-10 06:27] LABS: BASO% 0.6 % (0-3); EOS% 4.3 % (0-8); HEMATOCRIT 33.7 % (39.0-50.0); HEMOGLOBIN 10.8 g/dl (14.0-18.0); IMMATURE GRANULOCYTES 0.3 % (0.0-5.0); LYMPH% 24.9 % (15-41); MEAN CELL VOLUME 102.4 fL CALC (80.0-100.0); MEAN CORPUSCULAR HGB 32.8 pG CALC (26.0-32.0); MONO% 12.4 % (2-13); NEUT# 4.11 thou/uL (1.82-7.42); NEUT% 57.5 % (42-76); RED BLOOD COUNT 3.29 mill/uL (4.70-6.10)
[2024-07-10 06:42] LABS: ALBUMIN 2.4 g/dL (3.2-5.0); BILIRUBIN, TOTAL 0.3 mg/dL (0.2-1.3); CREATININE 0.5 mg/dL (0.7-1.3); MAGNESIUM 1.8 mg/dL (1.6-2.3); POTASSIUM 4.1 mmol/l (3.5-5.1); TOTAL PROTEIN 5.2 g/dL (6.3-8.2)
[2024-07-10 06:55] VITALS: BP 118/64
--- NOTE | 2024-07-10 06:55 | NUR ---
patient glucose level is 61, nurse notified.
--- NOTE | 2024-07-10 08:21 | NUR ---
PT IS AOX4, RESPIRATIONS ARE EVEN AND UNLABORED ON ROOM AIR, LUNGS ARE CLEAR THROUGHOUT, BOWEL SOUNDS ARE ACTIVE, LEFT PEDAL PULSES IS PALPABLE TO TOUCH, RIGHT ANKLE PULSES IS PALPABLE TO TOUCH, RIGHT FOOT DRESSING IS CLEAN, DRY, INTACT ELEVATED ON 2 PILLOWS, PT DENIES PAIN AT THIS TIME.
--- NOTE | 2024-07-10 08:39 | NUR ---
ASKED KARLEE LOPEZ IF PT IS STILL GETTING 60 UNITS OF LANTUS WITH GLUCOSE OF 61? KARLEE LOPEZ REPLIED NO, PT LANTUS ORDER WILL BE CHANGED TO 45 UNITS.
--- NOTE | 2024-07-10 08:44 | NUR ---
OK TO GIVE THE 45 UNITS OF LANTUS PER KARLEE PUBLIC RELATIONS SPECIALIST.
--- NOTE | 2024-07-10 09:59 | NUR ---
BOOKED AN INFECTIOUS DISEASE CONSULT WITH DR GARRETT VIA THE [facility] AT 0959 HRS.
--- NOTE | 2024-07-10 10:22 | NUR ---
S: HOLLIS WHITEHEAD is a 59 M who presents with celluitis and osteomyelitis. He has a history of diabetes. All medications in patient's chart were reviewed. O: VS: BP 118/64 mmHg , P 83 bmp, RR 8 bpm,T 96.7 W 61kg, HT 61 inches, Scr= 0.5 mg/dl ,CrCl= 107 ml/min Vancomycin trough is 18 mcg/ml 07/10/2024 A: Wound culture from 07/08/2024 shows Staphylococcus aureus with suscepbility to Vancomycin. Vancomycin trough goal for osteomyelitis is 15-20 mcg/ml. Pt can continue current dose. P: Patient is on Vancomycin 1 g IV Q8HR and Cefepime 2 g IV Q12HR . Vancomycin ordered for pharmacy to dose. Continue Vancomycin 1g IV Q8H. Vancomycin trough is drawn before the 4th dose on 07/11/24 @0930. Vancomycin goal trough is between 15-20 mcg/ml. Pharmacy will follow and or advise on antibiotics use as needed.
--- NOTE | 2024-07-10 14:15 | NUR ---
RIGHT FOOT DRESSING CHANGE COMPLETE. REMOVED 1 SIRI WRAP, 1 KURLEX, 4X4, AND FLUFF GAUZE. WOUND IS CLEAN, DRY, NO DRAINAGE, NO ODOR NOTED. COVERED WOUND WITH 2' FLUFF GAUZE SATURATED IN NS, COVERED BY DRY 4X4, FOLLOWED BY KURLEX ROLL, COVERED BY SIRI WRAP. PT TOLERATED WITH NO COMPLAINTS.
[2024-07-10 16:10] VITALS: BP 116/64
--- NOTE | 2024-07-10 17:19 | NUR ---
Pt sitting up in bed eating dinner, respirations are even and unlabored on room air, no fevers, denies pain at this time.
[2024-07-10 18:45] VITALS: BP 116/59
[2024-07-10] MEDS ORDERED: cefTRIAXone SODIUM 2 GM in SODIUM CHLORIDE 0.9% 100 ML IV SCH (19:50)
--- NOTE | 2024-07-10 20:00 | NUR ---
PATIENT SITTIING UP IN CHAIR WATCHING TV. PATIENT ALERT AND ORIENTED X 4. ASSESSMENT COMPLETE (SEE INTERVENTIONS). PATIENT DENIES PAIN AT THIS TIME. SAFETY MEASURES IN PLACE INCLUDING CHAIR LOCKED WITH CALL LIGHT RESTING NEXT TO R HAND.
--- NOTE | 2024-07-10 23:28 | NUR ---
PATIENT SITTING UP IN BED WATCHING TV. DENIES PAIN AT THIS TIME. NO APPARENT DISTRESS NOTED. WILL CONTINUE WITH PLAN OF CARE.
--- NOTE | 2024-07-11 04:00 | NUR ---
PATIENT APPEARS TO BE RESTING WITH EYES CLOSED. RISE AND FALL OF CHEST NOTED. NO APPARENT DISTRESS. WILL CONTINUE WITH PLAN OF CARE.
[2024-07-11 04:22] VITALS: BP 101/58
[2024-07-11 05:16] LABS: ALBUMIN 2.4 g/dL (3.2-5.0); BASO% 0.5 % (0-3); BILIRUBIN, TOTAL 0.4 mg/dL (0.2-1.3); CREATININE 0.5 mg/dL (0.7-1.3); EOS% 4.2 % (0-8); HEMATOCRIT 31.9 % (39.0-50.0); HEMOGLOBIN 10.6 g/dl (14.0-18.0); IMMATURE GRANULOCYTES 0.4 % (0.0-5.0); LYMPH% 20.4 % (15-41); MAGNESIUM 1.7 mg/dL (1.6-2.3); MEAN CELL VOLUME 102.6 fL CALC (80.0-100.0); MEAN CORPUSCULAR HGB 34.1 pG CALC (26.0-32.0); MEAN CORPUSCULAR HGB CONC 33.2 g/dL CAL (32.0-36.0); MONO% 10.8 % (2-13); NEUT# 5.12 thou/uL (1.82-7.42); NEUT% 63.7 % (42-76); POTASSIUM 3.7 mmol/l (3.5-5.1); RED BLOOD COUNT 3.11 mill/uL (4.70-6.10); RED CELL DISTRI WIDTH 11.9 % (11.5-15.5); TOTAL PROTEIN 5.4 g/dL (6.3-8.2)
--- NOTE | 2024-07-11 05:30 | NUR ---
PATIENT BLOOD GLUCOSE < 60, PATIENT PROVIDED 240 mL OF ORANGE JUICE, 2 PACKS OF TL CRACKERS AND PEANUT BUTTER. PATIENT CONSUMED ALL PROVIDED SNACKS.
--- NOTE | 2024-07-11 06:07 | NUR ---
R FOOT DRESSING CHANGED ORDERED.
[2024-07-11 06:24] VITALS: BP 101/59
--- NOTE | 2024-07-11 07:30 | NUR ---
PATIENT IS A&O X3 SPEAKS [place]. HAD NO C/O PAIN THIS MORNING. DID COMPLAIN ABOUT LEFT EYE WHICH IS RED / IS USING EYE DROPS FOR DRY EYE. IV SITE INTACT. ABLE TO MAKE NEEDS KNOWN
[2024-07-11 07:33] VITALS: BP 101/59
[2024-07-11] MEDS ORDERED: INSULIN GLARGINE 100 UNITS/ML SC SCH (09:00)
--- NOTE | 2024-07-11 12:00 | NUR ---
patient doing well resting in bed will have his dressing change at 1400. no c/o pain at this time
[2024-07-11 15:18] VITALS: BP 114/63
--- NOTE | 2024-07-11 16:00 | NUR ---
PATIENT LAYING IN BED RESTING HAD DRESSING DONE ON RT FOOT AND PAIN MED.
[2024-07-11 16:30] VITALS: BP 114/63
[2024-07-11 18:58] VITALS: BP 115/67
--- NOTE | 2024-07-11 20:00 | NUR ---
PATIENT RESTING IN BED RESPONDS TO VERBAL STIMULI. ALERT AND OREINTED X3. REPOSRT PAINTO HIS RIGHT FOOT 7/10 ON PAIN SCALE MEDICATED WITH DILAUDID AT THIS TIME. RESPS ARE EVEN AND UNLABIRED ON ROOM AIR. LUNGS ARE CLLEAR. NO EDEMA NOTED TO LOWER EXTREMITIES. STRONG PERIPHERAL PULSES TO TOUCH. DRESSING TO RIGHT FOOT IS CLEAN AND NTACT WITHOUT ANY DRAINAGE AT THIS TIME, IVF NORMAL SALINE RUNNING VIA 20 G LEFT FOREARM ORDERED. PICC LINE-SINGLE LUMEM TO TIGH UPPER ARM WITH DRESSING INTACT. PT WAS EDUCATED TO ELEVATE EXTREMTIY TO PREVENT ANY SWELLING AND HEEL TOUCH ONLY. INSTRUCTED TO CALL FOR ASSISTANCE NEEDED. CALL LIGHT IS IN REACH AND SAFETY PRECAUTIONS IN PLACE.
--- NOTE | 2024-07-11 22:20 | NUR ---
DRESSING TO LEFT FOOT CHANGED AT THIS TIME. CLEANED WITH NORMAL SALINE AND THEN WRAPPED WITH KURLEX AND SIRI BANDAGE. NO COMPLAINTS DURING PROCEDURE. CALL LIGHT IS IN REACH AND SAFETY PRECAUTIONS IN PLACE.
--- NOTE | 2024-07-12 | NUR ---
PATIENT IS RESTING IN SUPINE POSITION. RESPS ARE EVEN AND UNLABORED. IVF NORMAL SALINE INFUSING ORDERED PER EMAR. RIGHT FOOT IS ELEVATED. CALL LIGHT IS IN REACH AND SAFETY PRECAUTIONS IN PLACE.
[2024-07-12 04:49] VITALS: BP 95/57
--- NOTE | 2024-07-12 05:00 | NUR ---
PT RESTING IN BED WITH EYES OPEN. DENIES ANY NEEDS. BREATHING IS EVEN AND UNLABORED. CALL LIGHT IS WITHIN REACH AND SAFETY PRECAUTIONS IN PLACE.
[2024-07-12 05:41] VITALS: BP 105/61
--- NOTE | 2024-07-12 07:00 | NUR ---
SHIFT CHANGE REPORT, PT AWAKE ALERT AND ORIENTED RESTING IN BED, IVF INFUSING, DRESSING TO RIGHT FOOT IN PLACE, CALL PERDOMO IN REACH AND BED LOCKED IN LOWEST POSITION.
--- NOTE | 2024-07-12 07:22 | NUR ---
Dressing to right foot changed at this time. Cleaned withnormal saline and wrapped as ordered. No complaints. Call light is in reach and safety precautions in place.
[2024-07-12 12:09] LABS: ALBUMIN 2.8 g/dL (3.2-5.0); BILIRUBIN, TOTAL 0.3 mg/dL (0.2-1.3); CREATININE 0.5 mg/dL (0.7-1.3); POTASSIUM 4.3 mmol/l (3.5-5.1); TOTAL PROTEIN 5.9 g/dL (6.3-8.2)
--- NOTE | 2024-07-12 13:29 | NUR ---
DRESSING CHANGED AT THIS TIME PER ORDER, PT PREEDICATED WITH ANALGESIC.
[2024-07-12 16:30] VITALS: BP 100/56
[2024-07-12 18:54] VITALS: BP 98/54
--- NOTE | 2024-07-12 19:17 | NUR ---
DRESSING # 3 FOR THE DAY CHANGED AT THIS TIME.
[2024-07-12 20:00] VITALS: BP 98/54
[2024-07-13] VITALS: BP 98/54
[2024-07-13 04:42] VITALS: BP 90/52
[2024-07-13 05:20] VITALS: BP 90/52
[2024-07-13 05:20] LABS: BASO% 1.2 % (0-3); EOS% 5.5 % (0-8); HEMATOCRIT 31.9 % (39.0-50.0); HEMOGLOBIN 10.6 g/dl (14.0-18.0); IMMATURE GRANULOCYTES 0.4 % (0.0-5.0); LYMPH% 30.5 % (15-41); MEAN CELL VOLUME 101.3 fL CALC (80.0-100.0); MEAN CORPUSCULAR HGB 33.7 pG CALC (26.0-32.0); MEAN CORPUSCULAR HGB CONC 33.2 g/dL CAL (32.0-36.0); MONO% 9.9 % (2-13); NEUT# 3.99 thou/uL (1.82-7.42); NEUT% 52.5 % (42-76); RED BLOOD COUNT 3.15 mill/uL (4.70-6.10); RED CELL DISTRI WIDTH 11.9 % (11.5-15.5)
[2024-07-13 05:24] LABS: ALBUMIN 2.5 g/dL (3.2-5.0); BILIRUBIN, TOTAL 0.4 mg/dL (0.2-1.3); CREATININE 0.5 mg/dL (0.7-1.3); MAGNESIUM 1.5 mg/dL (1.6-2.3); POTASSIUM 4.4 mmol/l (3.5-5.1); TOTAL PROTEIN 5.7 g/dL (6.3-8.2)
[2024-07-13 07:00] VITALS: BP 93/54
--- NOTE | 2024-07-13 07:30 | NUR ---
[facility] SHIFT REPORT RECEIVED FROM NIGHT NURSE JENSEN. PT RESTING QUIETLY IN BED WITHOUT COMPLAINTS. RIGHT LE ELEVATED ON 2 PILLOWS AND IV PATENT TO RIGHT UA PICC. WILL MONITOR. CALL LIGHT IN REACH.
--- NOTE | 2024-07-13 09:30 | NUR ---
pt was esorted by son to restroom without play writer's knowledge. pt used walker and son pushed iv pole. pt bathed at sink after he voided in restroom. pt pulled cord. son was seen bringing pt out of restroom with iv pole. pt placed self back into bed. play writer turned light off. call light was in bed with pt. all needs met at this time.
[2024-07-13] MEDS ORDERED: LANTUS100 UNIT SC (10:48)
[2024-07-13] MEDS ORDERED: CEFTRIAXONE2 GM IV (10:50)
[2024-07-13] MEDS ORDERED: LORTAB 5/3255 MG PO (10:51)
--- NOTE | 2024-07-13 14:45 | NUR ---
PT SON AT BEDSIDE AND PRINTED D/C INSTRUCTIONS REVIEWED WITH HIM AND PT. RIGHT UA PICC FLUSHED WELL WITH 10ML NS. PT SET UP FOR IV INFUSIONS WITH IVT FOR TOMORROW 929. WOUND CARE INSTRUCTIONS GIVEN TO SON TO PERFORM 2 X A DAY. SON ASKED QUESTIONS AND ANSWERED THEM. INSTRUCTED TO COVER FOOT FOR SHOWERS AND TO KEEP CLEAN AND DRY. REVIEWED S& S OF INFECTION TO WATCH FOR AND REPORT. LEFT FA IV REMOVED WELL. SURGICAL SHOW GIVEN FOR RIGHT FOOT TO AMBULATE. PT TO F/U WITH DR. SHEEHAN IN 1 WEEK. REVIEWED BLOOD SUGAR CHECKS CLOSELY FOR DIABETIC MANAGEMENT AND STRESSED IMPORTANCE OF ADEQUATE CONTROL FOR WOUND HEALING. SON VERBALIZED UNDERSTANDING OF ALL INSTRUCTIONS GIVEN. PT THEN ASSISTED TO W/C FOR DISCHARGE OUT ACCOMPANIED BY STAFF AND FAMILY.
--- NOTE | 2024-07-13 15:06 | NUR ---
Discharge instructions given. Patient verbalizes understanding of same. Discharged in stable condition via Wheelchair to Home with staff. All belongings sent with pt.
== END 2024-07-13 14:58 | disposition home or self-care (01) | DRG 982 ==
LOC: ED 11:31 → ED-I 14:20 → ED 14:49 → MS2 14:50
PROVIDERS: Family Medicine; Internal Medicine; Nurse Practitioner Family; ADMIT Internal Medicine; ATTEND Internal Medicine
PROC: 02HV33Z Insertion of Infusion Device into Superior Vena Cava, Percutaneous Approach (ICD-10-PCS; 2024-07-07)
PROC: B518ZZA Fluoroscopy of Superior Vena Cava, Guidance (ICD-10-PCS; 2024-07-07)
PROC: 0KDV0ZZ Extraction of Right Foot Muscle, Open Approach (ICD-10-PCS; principal; 2024-07-08)
PROC: 0J9Q0ZZ Drainage of Right Foot Subcutaneous Tissue and Fascia, Open Approach (ICD-10-PCS; 2024-07-08)
DX: E11.69 Type 2 diabetes mellitus with other specified complication (principal); L02.611 Cutaneous abscess of right foot; L03.115 Cellulitis of right lower limb; M86.8X7 Other osteomyelitis, ankle and foot; B95.61 Methicillin susceptible Staphylococcus aureus infection as the cause of diseases classified elsewhere; M65.171 Other infective (teno)synovitis, right ankle and foot; E11.621 Type 2 diabetes mellitus with foot ulcer; L97.519 Non-pressure chronic ulcer of other part of right foot with unspecified severity; E11.65 Type 2 diabetes mellitus with hyperglycemia; E11.628 Type 2 diabetes mellitus with other skin complications; Z79.4 Long term (current) use of insulin
CPT/HCPCS: A9579; J0131; J0692; J0696; J1171; J1815; J3370